=== PATIENT | male | born 1990 | race Caucasian/White ===

== ENCOUNTER 2016-04-28 21:45 | Emergency (ER) | payer BC ==
[~2016-04-28] VITALS: Ht 182.9 cm; Wt 146.9 kg
[~2016-04-28 21:45] MED LIST: LORA-373 PO; ZANT150T2 PO
[2016-04-28 22:27] VITALS: BP 136/90; PULSE 84; RESP 18; TEMP 98.8; O2SAT 97
[2016-04-29] MEDS ORDERED: PENI500T PO (02:35)
--- NOTE | 2016-04-29 02:36 | PD ---
HPI Chief Complaint: Oral / Dental Pain or Problem Time Seen by Provider: 02:33 Travel History International Travel<30 days: No Contact w/Intl Traveler<30days: No Traveled to known affect area: No History of Present Illness HPI 26-year-old male presents to the emergency department for dental infection. Patient has had symptoms for the past 2-3 days with worsening times one day. Patient has not had opportunity to be seen by dentist. Patient denies fever chills nausea vomiting or other concerns. Patient denies being diabetic. Patient takes no immunosuppressive medications. Patient rates pain as 2/10 in intensity. Patient denies any known injury. 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 5) Social History Alcohol Use: No (DENIES) Tobacco Use: Yes (1 PPD) Substance Use: No Allergies-Medications (Allergen,Severity, Reaction): Coded Allergies: Codeine (Unverified Allergy, Severe, Hallucinations, 04/28/16) Uncoded Allergies: RED GATORADE (Allergy, Severe, Nausea/Vomiting, 08/29/13) HOT DOGS (Adverse Reaction, Intermediate, NAUSEA AND VOMITING, 02/20/06) Reported Meds & Prescriptions Reported Meds & Active Scripts Active Penicillin V Potassium 500 Mg Tab 500 Mg PO Q6H 7 Days Reported Zantac (Ranitidine HCl) 150 Mg Tab 150 Mg PO DAILY Lorazepam 0.5 Mg Tab 0.5 Mg PO DAILY Review of Systems Except as stated in HPI: all other systems reviewed are Neg Physical Exam Narrative GENERAL: Well-developed well-nourished male in no acute distress no respiratory distress SKIN: Warm and dry. HEAD: Normocephalic. EYES: No scleral icterus. No injection or drainage. ENT: Mucous membranes moist #2 dentition with gingival hypertrophy and edema extensive dental caries and gingivitis NECK: Supple, trachea midline. No JVD or lymphadenopathy. CARDIOVASCULAR: Regular rate and rhythm without murmurs, gallops, or rubs. RESPIRATORY: Breath sounds equal bilaterally. No accessory muscle use. GASTROINTESTINAL: Abdomen soft, non-tender, nondistended. MUSCULOSKELETAL: No cyanosis, or edema. BACK: Nontender without obvious deformity. No CVA tenderness. Data Data Last Documented VS Vital Signs Date Time Temp Pulse Resp B/P Pulse Ox O2 Delivery O2 Flow Rate FiO2 04/29/16 02:48 81 18 151/81 99 04/28/16 22:27 98.8 Orders Penicillin V Potassium (Veetids) (04/29/16 02:45) [facility] Medical Decision Making Medical Screen Exam Complete: Yes Emergency Medical Condition: Yes Medical Record Reviewed: Yes Differential Diagnosis Dental infection dentalgia dental abscess dental fracture Narrative Course Patient given first dose of antibiotic in the emergency department otherwise stable for outpatient management and close follow-up with dentist; no diagnostics were imaging studies indicated Diagnosis Primary Impression: Dental abscess Referrals: Dentist call for appointment Patient Instructions: Moderate Sedation in Children (ED) Additional Instructions: Complete course of antibiotic Use warm saltwater gargles and swishes comfort purposes Take ibuprofen or acetaminophen per package directions as needed for fever 100.4 F or greater or for pain Follow-up with dentist Return to the emergency department for any concerns or change in condition Med/Other Pt SpecificInfo: Prescription(s) given Scripts Penicillin V Potassium 500 Mg [id number] Mg PO Q6H 7 Days Ref 0 Prov:Tonia Harris MD 04/29/16 Disposition: 01 DISCHARGE HOME Condition: Stable Tonia Harris MD Apr 29, 2016 02:36
[2016-04-29] MEDS ORDERED: PENICILLIN V POTASSIUM 500 MG TAB PO ONE (02:45)
[2016-04-29 02:48] VITALS: BP 151/81
== END 2016-04-29 02:53 | disposition home or self-care (01) ==
LOC: PHED 21:45
DX: K04.7 Periapical abscess without sinus (principal); I10 Essential (primary) hypertension; F17.200 Nicotine dependence, unspecified, uncomplicated; Z86.59 Personal history of other mental and behavioral disorders; Z87.19 Personal history of other diseases of the digestive system; Z87.39 Personal history of other diseases of the musculoskeletal system and connective tissue; Z86.69 Personal history of other diseases of the nervous system and sense organs
CPT/HCPCS: 99282

== ENCOUNTER 2016-07-14 03:09 | Emergency (ER) | payer BC ==
[~2016-07-14] VITALS: Ht 182.9 cm; Wt 145.0 kg
[~2016-07-14 03:09] MED LIST changes: +PENI500T PO
[2016-07-14 03:13] VITALS: BP 148/98; PULSE 83; RESP 18; TEMP 98.4; O2SAT 97
[2016-07-14] MEDS ORDERED: MOTR200T4 PO (03:23)
[2016-07-14 03:25] VITALS: BP 148/98; PULSE 83; RESP 18; TEMP 98.4; O2SAT 97
--- NOTE | 2016-07-14 03:27 | PD ---
HPI Chief Complaint: Foreign Body Time Seen by Provider: 03:24 Travel History International Travel<30 days: No Contact w/Intl Traveler<30days: No History of Present Illness HPI 26yo M with PMH of vertigo and HTN presents to the ED with c/o glass in left foot. States he stepped on glass 30-40 minutes ago. Thinks that something broke about 6 months ago and they must not have clean it all up. Denies any other complaint. 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 5) Social History Alcohol Use: No (DENIES) Tobacco Use: Yes (1 PPD) Substance Use: No Allergies-Medications (Allergen,Severity, Reaction): Coded Allergies: Codeine (Unverified Allergy, Severe, Hallucinations, 07/14/16) Uncoded Allergies: RED GATORADE (Allergy, Severe, Nausea/Vomiting, 08/29/13) HOT DOGS (Adverse Reaction, Intermediate, NAUSEA AND VOMITING, 02/20/06) Reported Meds & Prescriptions Reported Meds & Active Scripts Active Reported Motrin Ib (Ibuprofen) 200 Mg Tab 800 Mg PO Q6H PRN Lorazepam 0.5 Mg Tab 0.5 Mg PO DAILY Review of Systems Except as stated in HPI: all other systems reviewed are Neg Physical Exam Narrative GENERAL: 26yo M not in distress. SKIN: Focused skin assessment warm/dry. HEAD: Atraumatic. Normocephalic. CARDIOVASCULAR: Regular rate and rhythm. No murmur appreciated. RESPIRATORY: No accessory muscle use. Clear to auscultation. Breath sounds equal bilaterally. GASTROINTESTINAL: Abdomen soft, non-tender, nondistended. MUSCULOSKELETAL: Left foot: +Small piece of glass in plantar aspect of calcaneus. DP 2+. Sensation intact. NEUROLOGICAL: Awake and alert. No obvious cranial nerve deficits. Motor grossly within normal limits. Normal speech. PSYCHIATRIC: Appropriate mood and affect; insight and judgment normal. Data Data Last Documented VS Vital Signs Date Time Temp Pulse Resp B/P Pulse Ox O2 Delivery O2 Flow Rate FiO2 07/14/16 03:28 83 18 07/14/16 03:25 98.4 148/98 97 Orders Lidocaine 1% Inj (50 Ml) (Xylocaine 1% I (07/14/16 03:30) Foot, Limited (2vws) (07/14/16 ) Acetaminophen (Tylenol) (07/14/16 04:00) MDM Medical Decision Making Medical Screen Exam Complete: Yes Emergency Medical Condition: Yes Differential Diagnosis Foreign body in foot Narrative Course 26yo M presents with piece of glass in his left foot after stepping on broken glass today. I removed the piece of glass in plantar surface of calcaneus. Pt given acetaminophen 650mg PO. Xray left foot after glass removal showed no foreign body. Return precautions given. Procedures Procedure Narrative Foreign body removal: Left foot was cleaned with betadine and 1% lidocaine use to numb around area of glass protrusion. I was able to remove a small triangular piece of glass with forcep. Wound irrigated with normal saline and I did not visualize any more foreign body. Covered wound with bandaid. Diagnosis Primary Impression: SUPERFICIAL FOREIGN BODY, UNSPECIFIED FOOT, INIT ENCNTR Patient Instructions: General Instructions Departure Forms: Tests/Procedures Additional Instructions: Please follow up with your PMD in 3-7 days. Return to the ED if symptoms worsen. Med/Other Pt SpecificInfo: Prescription(s) given Scripts Acetaminophen (Acetaminophen Extra Strength)500 Mg [id number] Mg PO Q6H PRN (PAIN SCALE 1 TO 4) #20 TAB Ref 0 Prov:Trish Escobedo DO 07/14/16 Disposition: 01 DISCHARGE HOME Condition: Stable Trish Escobedo DO July 14, 2016 03:27
[2016-07-14] MEDS ORDERED: LIDOCAINE HCL 1% 50 ML VIAL INFIL ONE (03:30)
[2016-07-14] MEDS ORDERED: ACETAMINOPHEN 325 MG TAB PO ONE (04:00)
--- NOTE | 2016-07-14 04:18 | RADHPO ---
EXAM DATE/TIME: 07/14/2016 03:58 [facility] COMPARISON: No previous studies available for comparison. INDICATIONS : Left foot, possible foreign body, stepped on glass in heel. MEDICAL HISTORY : None. SURGICAL HISTORY : None. ENCOUNTER: Initial ACUITY: 1 day PAIN SCORE: 3/10 LOCATION: Left foot. FINDINGS: Two view examination of the left foot demonstrates no soft tissue swelling, dislocation, or fracture. The calcaneus is intact. Bony mineralization is normal. CONCLUSION: 1. No foreign body is identified. Zeeshan Pham MD on July 14, 2016 at 4:17 Board Certified Radiologist. This report was verified electronically.
[2016-07-14 04:28] VITALS: BP 152/96; PULSE 75; RESP 18; O2SAT 95
[2016-07-14] MEDS ORDERED: ACET500T36 PO (04:30)
== END 2016-07-14 04:36 | disposition home or self-care (01) ==
LOC: PHED 03:09
DX: S90.852A Superficial foreign body, left foot, initial encounter (principal); W25.XXXA Contact with sharp glass, initial encounter; W45.8XXA Other foreign body or object entering through skin, initial encounter
CPT/HCPCS: 28190; 73620

== ENCOUNTER 2016-11-01 01:52 | Emergency (ER) | payer BC ==
[~2016-11-01] VITALS: Ht 193 cm; Wt 141.7 kg
[~2016-11-01 01:52] MED LIST changes: +ACET500T36 PO; +MOTR200T4 PO; -PENI500T PO; -ZANT150T2 PO
[2016-11-01] MEDS ORDERED: IBUP800T23 PO (02:20)
[2016-11-01 02:27] LABS: AUTOMATED NEUTROPHIL # 6.8 TH/MM3 (1.8-7.7); BASOPHIL # 0.3 TH/MM3 (0-0.2); BASOPHIL % 3.1 % (0.0-2.0); EOSINOPHIL # 0.2 TH/MM3 (0-0.4); EOSINOPHIL % 1.7 % (0.0-4.0); HEMATOCRIT 46.3 % (39.0-51.0); HEMO FLAGS DIFF FINAL; LYMPH % 24.5 % (9.0-44.0); LYMPHOCYTE # 2.6 TH/MM3 (1.0-4.8); MEAN CELL VOLUME 79.4 FL (80.0-100.0); MEAN CORPUSCULAR HEMOGLOBIN 26.7 PG (27.0-34.0); MEAN CORPUSCULAR HGB CONC 33.7 % (32.0-36.0); MONO % 5.1 % (0.0-8.0); NEUT % 65.6 % (16.0-70.0); PLATELET COUNT 259 TH/MM3 (150-450); RED BLOOD COUNT 5.84 MIL/MM3 (4.50-5.90); WHITE BLOOD COUNT 10.4 TH/MM3 (4.0-11.0)
[2016-11-01 02:37] VITALS: BP 163/92; PULSE 92; RESP 18; O2SAT 96
[2016-11-01 02:37] LABS: CHLORIDE 106 MEQ/L (98-107); POTASSIUM 3.9 MEQ/L (3.5-5.1); SODIUM (NA) 140 MEQ/L (136-145)
[2016-11-01 02:40] LABS: ANION GAP 7 MEQ/L (5-15); BICARBONATE 27.1 MEQ/L (21.0-32.0)
[2016-11-01 02:41] LABS: BLOOD UREA NITROGEN 16 MG/DL (7-18)
[2016-11-01 02:44] LABS: ALT (GPT) 56 U/L (12-78); AST (GOT) 25 U/L (15-37); GLOMERULAR FILTRATION RATE 92 ML/MIN (>89)
[2016-11-01 02:45] LABS: TOTAL BILIRUBIN ADULT 0.1 MG/DL (0.2-1.0)
[2016-11-01 02:46] LABS: ALKALINE PHOSPHATASE 88 U/L (45-117)
--- NOTE | 2016-11-01 02:51 | RADRPT ---
EXAM DATE/TIME: 11/01/2016 02:36 [facility] COMPARISON: CHEST PA & LAT, February 03, 2014, 17:14. INDICATIONS : Chest pain. MEDICAL HISTORY : None. SURGICAL HISTORY : None. ENCOUNTER: Initial ACUITY: 1 day PAIN SCORE: 7/10 LOCATION: Bilateral chest FINDINGS: PA and lateral views of the chest demonstrate the lungs to be symmetrically aerated without evidence of mass, infiltrate or effusion. The cardiomediastinal contours are unremarkable. Osseous structure s are intact. CONCLUSION: No acute disease. Te Day MD on November 01, 2016 at 2:49 Board Certified Radiologist. This report was verified electronically.
[2016-11-01 03:40] VITALS: BP 141/76; PULSE 87; RESP 18; TEMP 98.7; O2SAT 96
[2016-11-01] MEDS ORDERED: LORA-373 PO (03:48)
[2016-11-01] MEDS ORDERED: PROM25TA10 PO (03:48)
--- NOTE | 2016-11-01 03:48 | PD ---
HPI Chief Complaint: Chest Pain Time Seen by Provider: 02:08 Travel History International Travel<30 days: No Contact w/Intl Traveler<30days: No Traveled to known affect area: No History of Present Illness HPI The patient is a 26-year-old male with a 10 year history of intermittent vertigo who states at 1 AM his left ear "popped". After the ear popped he felt pressure in the left ear as well as nausea and vomiting. He also experienced vertigo. He denies any drainage in the left ear. He does have a history of perforation of that tympanic membrane years ago. He complained of some brief chest pain, this is gone now. Meclizine has not worked for his vertigo but lorazepam has worked and so has Valium. Valium makes him too sleepy and he prefers lorazepam 0.5 mg. PFSH Past Medical History Anxiety: Yes Cardiovascular Problems: Yes Diminished Hearing: No GERD: Yes Headaches: Yes Hypertension: Yes Medical other: Yes (vertigo) Musculoskeletal: Yes (5TH METACARPAL RIGHT HAND FX: AGE 14) Immunizations Current: Yes Migraines: Yes Seizures: Yes (WITH BRAIN TUMOR: RESOLVED) Tetanus Vaccination: < 5 Years Influenza Vaccination: No Past Surgical History Neurologic Surgery: Yes (BRAIN TUMOR cerebellum: AGE 5) Social History Alcohol Use: No (DENIES) Tobacco Use: Yes (1 PPD) Substance Use: No Allergies-Medications (Allergen,Severity, Reaction): Coded Allergies: codeine (Verified Allergy, Severe, Hallucinations, 11/01/16) Uncoded Allergies: RED GATORADE (Allergy, Severe, Nausea/Vomiting, 08/29/13) HOT DOGS (Adverse Reaction, Intermediate, NAUSEA AND VOMITING, 02/20/06) Reported Meds & Prescriptions Reported Meds & Active Scripts Active Reported Ibuprofen 800 Mg Tab 800 Mg PO Q8H PRN Lorazepam 0.5 Mg Tab 0.5 Mg PO HS Review of Systems Except as stated in HPI: all other systems reviewed are Neg Physical Exam Narrative GENERAL: The patient is alert, oriented 3 in no apparent distress at this time. His vital signs are normal. SKIN: Focused skin assessment warm/dry. HEAD: Atraumatic. Normocephalic. EYES: Pupils equal and round. No scleral icterus. No injection or drainage. ENT: No nasal bleeding or discharge. Mucous membranes pink and moist. The right tympanic membrane and canal are normal. The left tympanic membrane shows a good reflex but shows an off white dullness behind the drum. The right tympanic membrane does not have this appearance. Both canals are normal. NECK: Trachea midline. No JVD. CARDIOVASCULAR: Regular rate and rhythm. No murmur appreciated. RESPIRATORY: No accessory muscle use. Clear to auscultation. Breath sounds equal bilaterally. GASTROINTESTINAL: Abdomen soft, non-tender, nondistended. Hepatic and splenic margins not palpable. MUSCULOSKELETAL: No obvious deformities. No clubbing. No cyanosis. No edema. NEUROLOGICAL: Awake and alert. No obvious cranial nerve deficits. Motor grossly within normal limits. Normal speech. PSYCHIATRIC: Appropriate mood and affect; insight and judgment normal. Data Data Last Documented VS Vital Signs Date Time Temp Pulse Resp B/P Pulse Ox O2 Delivery O2 Flow Rate FiO2 11/01/16 02:07 92 Orders Complete Blood Count With Diff (11/01/16 02:17) Comprehensive Metabolic Panel (11/01/16 02:17) Troponin I (11/01/16 02:17) Chest, Pa & Lat (11/01/16 ) Ecg Monitoring (11/01/16 02:17) Labs Laboratory Tests Test 11/01/16 02:20 White Blood Count 10.4 TH/MM3 Red Blood Count 5.84 MIL/MM3 Hemoglobin 15.6 GM/DL Hematocrit 46.3 % Mean Corpuscular Volume 79.4 FL Mean Corpuscular Hemoglobin 26.7 PG Mean Corpuscular Hemoglobin 33.7 % Concent Red Cell Distribution Width 13.0 % Platelet Count 259 TH/MM3 Mean Platelet Volume 8.3 FL Neutrophils (%) (Auto) 65.6 % Lymphocytes (%) (Auto) 24.5 % Monocytes (%) (Auto) 5.1 % Eosinophils (%) (Auto) 1.7 % Basophils (%) (Auto) 3.1 % Neutrophils # (Auto) 6.8 TH/MM3 Lymphocytes # (Auto) 2.6 TH/MM3 Monocytes # (Auto) 0.5 TH/MM3 Eosinophils # (Auto) 0.2 TH/MM3 Basophils # (Auto) 0.3 TH/MM3 CBC Comment DIFF FINAL Differential Comment Sodium Level 140 MEQ/L Potassium Level 3.9 MEQ/L Chloride Level 106 MEQ/L Carbon Dioxide Level 27.1 MEQ/L Anion Gap 7 MEQ/L Blood Urea Nitrogen 16 MG/DL Creatinine 1.00 MG/DL Estimat Glomerular Filtration 92 ML/MIN Rate Random Glucose 138 MG/DL Calcium Level 8.9 MG/DL Total Bilirubin 0.1 MG/DL Aspartate Amino Transf 25 U/L (AST/SGOT) Alanine Aminotransferase 56 U/L (ALT/SGPT) Alkaline Phosphatase 88 U/L Troponin I LESS THAN 0.02 NG/ML Total Protein 7.4 GM/DL Albumin 3.5 GM/DL MDM Medical Decision Making Medical Screen Exam Complete: Yes Emergency Medical Condition: Yes Medical Record Reviewed: Yes Interpretation(s) The CBC is normal. The complete metabolic profile shows a glucose of 138 but is otherwise normal. The troponin I is normal. The EKG shows sinus rhythm with a rate of [address] elevation or depression. Differential Diagnosis Chronic vertigo, Cholesteatoma, tympanic membrane perforation, round window perforation, benign positional vertigo, viral labyrinthitis Narrative Course The patient has chronic vertigo. He may have a round window perforation, I do not see any tympanic membrane perforation. He has a dullness behind the left ear which is not present on the right ear. He has had vertigo for a long time but has never seen an cardiology fellow. He needs to see an cardiology fellow. For now, I will write him lorazepam, 0.5 mg. I will also write him Phenergan. Diagnosis Primary Impression: Chronic vertigo Additional Impression: Atypical chest pain Additional Instructions: As we discussed, you need to see an cardiology fellow. There is only a minimal difference between the 2 years but it does appear that the left ear has some dullness behind the drum. Do not drink alcohol or drive on the Phenergan or lorazepam. Med/Other Pt SpecificInfo: Prescription(s) given Scripts Promethazine (Phenergan)25 Mg Exinpc28 Mg PO Q6H PRN (NAUSEA OR VOMITING) #30 TAB Ref 0 Prov:Nicholas Lucio MD 11/01/16 Lorazepam 0.5 Mg Tab0.5 Mg PO Q6H PRN (vertigo) #30 TAB Ref 0 Prov:Nicholas Lucio MD 11/01/16 Disposition: 01 DISCHARGE HOME Condition: Stable Nicholas Lucio MD Nov 01, 2016 03:48
--- NOTE | 2016-11-01 16:08 | EKG ---
Date Performed: 11/01/2016 Time Performed: 02:07:24 PTAGE: 26 years EKG: Sinus rhythm INDETERMINATE AXIS INCOMPLETE RIGHT BUNDLE BRANCH BLOCK BORDERLINE ECG PREVIOUS TRACING 07/30/2015 23.01.16 Since previous tracing, no significant change noted DOCTOR: Mateo Liu Interpretating Date/Time 11/01/2016 16:07:21
== END 2016-11-01 04:01 | disposition home or self-care (01) ==
LOC: PHED 01:52
DX: R42 Dizziness and giddiness (principal); R07.89 Other chest pain; R11.2 Nausea with vomiting, unspecified; F17.200 Nicotine dependence, unspecified, uncomplicated
CPT/HCPCS: 71020; 80053; 84484; 85025; 93005; 99285

== ENCOUNTER 2016-12-31 00:20 | Emergency (ER) | payer BC ==
[~2016-12-31] VITALS: Ht 182.9 cm; Wt 139.2 kg
[~2016-12-31 00:20] MED LIST changes: -ACET500T36 PO; +IBUP800T23 PO; -MOTR200T4 PO; +PROM25TA10 PO
[2016-12-31 00:26] VITALS: BP 177/92; PULSE 77; RESP 16; TEMP 97.6; O2SAT 98
[2016-12-31 00:35] VITALS: BP 177/92; PULSE 77; RESP 16; TEMP 97.6
--- NOTE | 2016-12-31 00:45 | PD ---
HPI Chief Complaint: injury Time Seen by Provider: 00:39 Travel History International Travel<30 days: No Contact w/Intl Traveler<30days: No Traveled to known affect area: No History of Present Illness HPI 26-year-old male presents to the emergency department for complaint of left hand injury. Patient states Thursday evening he contused the dorsal aspect of his left hand against a lathe. Patient denies other injury. Patient has had minimal swelling or bruising. Patient denies any wrist pain or finger pain. Patient is able to eyeglass lens generator and has intact thumb apposition. Patient has not noticed any deformity. No prior injury to the left hand. Patient rates his pain at rest one to 2/10 in intensity and with eyeglass lens generator strength 5-6/10 in intensity. Patient has taken no medications including no acetaminophen or ibuprofen. Patient has not applied ice. Due to persistent discomfort decided to, probably come to the emergency room for evaluation. Patient is right- handed. PFSH Past Medical History Narrative Medical Anxiety GERD hypertension childhood seizures post tumor excision right hand fracture; craniotomy with cerebellar tumor excision H3; tobacco use; nursing notes reviewed Anxiety: Yes Cardiovascular Problems: Yes Diminished Hearing: No GERD: Yes Headaches: Yes Hypertension: Yes Musculoskeletal: Yes (5TH METACARPAL RIGHT HAND FX: AGE 14) Immunizations Current: Yes Migraines: Yes Seizures: Yes (WITH BRAIN TUMOR: RESOLVED) Past Surgical History Neurologic Surgery: Yes (BRAIN TUMOR cerebellum: AGE 5) Social History Alcohol Use: No (DENIES) Tobacco Use: Yes (1 PPD) Substance Use: No Allergies-Medications (Allergen,Severity, Reaction): Coded Allergies: codeine (Verified Allergy, Severe, Hallucinations, 12/31/16) Uncoded Allergies: RED GATORADE (Allergy, Severe, Nausea/Vomiting, 08/29/13) HOT DOGS (Adverse Reaction, Intermediate, NAUSEA AND VOMITING, 02/20/06) Reported Meds & Prescriptions Reported Meds & Active Scripts Active Phenergan (Promethazine HCl) 25 Mg Tablet 25 Mg PO Q6H PRN Lorazepam 0.5 Mg Tab 0.5 Mg PO Q6H PRN Reported Ibuprofen 800 Mg Tab 800 Mg PO Q8H PRN Lorazepam 0.5 Mg Tab 0.5 Mg PO HS Review of Systems Except as stated in HPI: all other systems reviewed are Neg General / Constitutional: No: Fever, Chills HENT: No: Congestion Cardiovascular: No: Chest Pain or Discomfort Respiratory: No: Shortness of Breath Gastrointestinal: No: Vomiting, Abdominal Pain Genitourinary: No: Flank Pain Musculoskeletal: Positive: Pain, No: Myalgias, Arthralgias, Limited ROM Skin: No Rash Neurologic: No: Weakness (left hand), Paresthesia Psychiatric: No: Anxiety Hematologic/Lymphatic: No: Lymph Node Enlargement Physical Exam Narrative GENERAL: Well-developed well-nourished male in no acute distress no respiratory distress SKIN: Warm and dry. HEAD: Normocephalic. EYES: No scleral icterus. No injection or drainage. NECK: Supple, trachea midline. No JVD or lymphadenopathy. CARDIOVASCULAR: Regular rate and rhythm without murmurs, gallops, or rubs. RESPIRATORY: Breath sounds equal bilaterally. No accessory muscle use. GASTROINTESTINAL: Abdomen soft, non-tender, nondistended. MUSCULOSKELETAL: No cyanosis, or edema. Attention left hand: No redness no pallor no edema intact flexion extension of each digit intact thumb apposition capillary refill brisk and less than 2 seconds per digit mild tenderness to palpation over the dorsum of the left hand at the third and fourth metacarpal carpal joints without soft tissue swelling or deformity. Radial and ulnar pulses 2+ to palpation. Data Data Last Documented VS Vital Signs Date Time Temp Pulse Resp B/P (MAP) Pulse Ox O2 Delivery O2 Flow Rate FiO2 12/31/16 00:35 97.6 77 16 177/92 (120) 12/31/16 00:35 98 Room Air Orders Orders Hand, Complete ([id number]) (12/31/16 ) Ed Discharge Order (12/31/16 01:24) MDM Medical Decision Making Medical Screen Exam Complete: Yes Emergency Medical Condition: Yes Medical Record Reviewed: Yes Interpretation(s) left hand XR: No fracture subluxation or dislocation seen. No acute bony injury. Differential Diagnosis Contusion, fracture, subluxation, extensor tendinitis Narrative Course Imaging study of the left hand ordered Patient informed of imaging results in stable for outpatient management. Diagnosis Primary Impression: Contusion of hand, left Qualified Codes: S60.222A - Contusion of left hand, initial encounter Referrals: Primary Care Physician as needed Patient Instructions: General Instructions Additional Instructions: Apply ice intermittently first 12-24 hours then moist heat as needed for comfort Take ibuprofen/Advil/Motrin 800 mg as often as every 8 hours as needed for pain associated inflammation May take acetaminophen/Tylenol every 4-6 hours as needed for minor pain or for fever 100.4F or greater Increase fluid hydration May wear an Ronen wrap intermittently for comfort purposes do not wear this while sleeping Follow-up with primary care provider as needed Return to the emergency department for any concerns or change in condition Disposition: 01 DISCHARGE HOME Condition: Stable Tonia Harris MD Dec 31, 2016 00:45
--- NOTE | 2016-12-31 01:21 | RADRPT ---
EXAM DATE/TIME: 12/31/2016 00:56 [facility] COMPARISON: No previous studies available for comparison. INDICATIONS : Left hand pain after hitting hand against heavy object. MEDICAL HISTORY : None. SURGICAL HISTORY : None. ENCOUNTER: Initial ACUITY: 3 days PAIN SCORE: 6/10 LOCATION: Left hand. FINDINGS: Three view examination of the left hand demonstrates no soft tissue swelling, dislocation, or fractur e. The carpal bones appear intact. The interphalangeal and metacarpophalangeal joints are intact. Bony mineralization is normal. CONCLUSION: 1. There is no evidence of acute fracture. Zeeshan Pham MD on December 31, 2016 at 1:20 Board Certified Radiologist. This report was verified electronically.
[2016-12-31 01:40] VITALS: BP 152/74
== END 2016-12-31 01:44 | disposition home or self-care (01) ==
LOC: PHED 00:20
DX: S60.222A Contusion of left hand, initial encounter (principal); W22.8XXA Striking against or struck by other objects, initial encounter
CPT/HCPCS: 73130; 99283

== ENCOUNTER 2017-02-01 19:02 | Emergency (ER) | payer BC ==
[~2017-02-01] VITALS: Ht 182.9 cm; Wt 138.1 kg
[~2017-02-01 19:02] MED LIST changes: +IBUP1TAB7 PO; -IBUP800T23 PO; -LORA-373 PO; +LORA0.5T PO
[2017-02-01 19:08] VITALS: BP 130/66; PULSE 79; RESP 20; TEMP 98.4; O2SAT 96
[2017-02-01] MEDS ORDERED: PRED20 PO (19:38)
--- NOTE | 2017-02-01 19:38 | PD ---
HPI Chief Complaint: ENT Complaint Time Seen by Provider: 19:15 Travel History International Travel<30 days: No Contact w/Intl Traveler<30days: No Traveled to known affect area: No History of Present Illness HPI 26 old male here for evaluation of left ear fullness and a popping sensation times one day. He denies ear pain, ear drainage, fever, chills. He denies trauma or injury to the ear. Symptoms severity is mild. No alleviating factors. 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14) Immunizations Current: Yes Migraines: Yes Seizures: Yes (WITH BRAIN TUMOR: RESOLVED) Past Surgical History Neurologic Surgery: Yes (BRAIN TUMOR cerebellum: AGE 5) Social History Alcohol Use: No (DENIES) Tobacco Use: Yes (1 PPD) Substance Use: No Allergies-Medications (Allergen,Severity, Reaction): Coded Allergies: codeine (Verified Allergy, Severe, Hallucinations, 02/01/17) Uncoded Allergies: RED GATORADE (Allergy, Severe, Nausea/Vomiting, 08/29/13) HOT DOGS (Adverse Reaction, Intermediate, NAUSEA AND VOMITING, 02/20/06) Reported Meds & Prescriptions Reported Meds & Active Scripts Active Reported Ibuprofen 800 Mg Tab 800 Mg PO Q8H PRN Lorazepam 0.5 Mg Tab 0.5 Mg PO HS Review of Systems Except as stated in HPI: all other systems reviewed are Neg Physical Exam Narrative HEAD: Atraumatic. Normocephalic. EYES: no discharge or injection. No scleral icterus. EARS: Left TM bulging, no erythema, fluid bubbles present. NOSE: Nasal turbinates appear normal without nasal blood, purulent drainage or septal hematoma. THROAT: Mucosa pink and moist. No erythema or exudates. No uvular edema. No uvular, palatal, or tonsillar deviation. Airway patent. Data Data Last Documented VS Vital Signs Date Time Temp Pulse Resp B/P (MAP) Pulse Ox O2 Delivery O2 Flow Rate FiO2 02/01/17 19:22 (87) 02/01/17 19:08 98.4 79 20 96 MDM Medical Decision Making Medical Screen Exam Complete: Yes Emergency Medical Condition: Yes Differential Diagnosis Otitis media, serous otitis, eustachian tube dysfunction Narrative Course 26-year-old male here with left ear fullness and a tapping sound times one day. On exam he has fluid bubbles behind the left TM. No sign of infection. To take [id number] Claritin or Zyrtec. He will be given a short dose of steroids Diagnosis Primary Impression: Serous otitis media Qualified Codes: H65.92 - Unspecified nonsuppurative otitis media, left ear Additional Instructions: Take [id number] Claritin or Zyrtec daily. Follow-up with her primary doctor. Scripts Prednisone (Prednisone) 20 Mg Tab 40 MG PO DAILY, #10 TAB 0 Refills Take 40 mg (2 tablets) daily for 5 days Prov: Nina Corea 02/01/17 Disposition: 01 DISCHARGE HOME Condition: Stable Nina Corea Feb 01, 2017 19:38
== END 2017-02-01 20:06 | disposition home or self-care (01) ==
LOC: PHEFT 19:02
DX: H65.92 Unspecified nonsuppurative otitis media, left ear (principal); F17.200 Nicotine dependence, unspecified, uncomplicated
CPT/HCPCS: 99283

== ENCOUNTER 2017-08-01 21:41 | Emergency (ER) | payer BC ==
[~2017-08-01] VITALS: Ht 182.9 cm; Wt 140.1 kg
[~2017-08-01 21:41] MED LIST changes: +PRED20 PO; -PROM25TA10 PO
[2017-08-01 21:58] VITALS: BP 143/91; PULSE 82; RESP 18; TEMP 98.8; O2SAT 97
[2017-08-01] MEDS ORDERED: SODIUM CHLORIDE 0.9% FLUSH 10 ML FLUSH IV FLUSH PRN (22:15)
[2017-08-01] MEDS ORDERED: KETOROLAC TROMETHAMINE 30 MG/ML (IVP) VIAL IV PUSH ONE (22:15)
[2017-08-01] MEDS ORDERED: SODIUM CHLOR 0.9% 1000 ML INJ 1,000 ML IV SCH (22:15)
--- NOTE | 2017-08-01 22:20 | PD ---
HPI Chief Complaint: abdominal pain Time Seen by Provider: 22:14 Travel History International Travel<30 days: No Contact w/Intl Traveler<30days: No Traveled to known affect area: No History of Present Illness HPI 27-year-old male presents to the emergency department by private transportation for evaluation of one half days of lower abdominal pain left lower quadrant greater than right lower quadrant and midline. No fever no chills no nausea no vomiting no diarrhea no constipation no dysuria frequency urgency flank pain hematuria penile discharge scrotal edema or testicular pain. Patient denies any injury. Patient states bending down trying to lift objects increases pain. Patient has not noticed a mass. Patient has had similar pain into the upper abdomen in the remote past. Patient takes lorazepam and ibuprofen and denies any other medication use. Admits to tobacco use occasional alcohol use and denies substance use. Patient is otherwise unable to identify exacerbating or alleviating factors did not take his medications today. Patient denies any anorexia. Patient rates intermittent pain 4-5/10 intensity. 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 14) Immunizations Current: Yes Migraines: Yes Seizures: Yes (WITH BRAIN TUMOR: RESOLVED) Past Surgical History Neurologic Surgery: Yes (BRAIN TUMOR cerebellum: AGE 5) Social History Alcohol Use: No (DENIES) Tobacco Use: Yes (1 PPD) Substance Use: No Allergies-Medications (Allergen,Severity, Reaction): Coded Allergies: codeine (Verified Allergy, Severe, Hallucinations, 08/01/17) Uncoded Allergies: RED GATORADE (Allergy, Severe, Nausea/Vomiting, 08/29/13) HOT DOGS (Adverse Reaction, Intermediate, NAUSEA AND VOMITING, 02/20/06) Reported Meds & Prescriptions Reported Meds & Active Scripts Active Reported Ibuprofen 800 Mg Tab 800 Mg PO Q8H PRN Lorazepam 0.5 Mg Tab 0.5 Mg PO HS Review of Systems Except as stated in HPI: all other systems reviewed are Neg General / Constitutional: No: Fever, Chills HENT: No: Congestion Cardiovascular: No: Chest Pain or Discomfort Respiratory: No: Shortness of Breath Gastrointestinal: No: Nausea, Abdominal Pain, Hematemesis, Hematochezia, Constipation, Loss of Appetite Genitourinary: No: Dysuria, Flank Pain, Discharge Musculoskeletal: No: Myalgias, Arthralgias Skin: No Rash Neurologic: No: Weakness Psychiatric: No: Anxiety Hematologic/Lymphatic: No: Lymph Node Enlargement Physical Exam Narrative GENERAL: Well-developed well-nourished male no acute distress or respiratory SKIN: Warm and dry. HEAD: Normocephalic. EYES: No scleral icterus. No injection or drainage. NECK: Supple, trachea midline. No JVD or lymphadenopathy. CARDIOVASCULAR: Regular rate and rhythm without murmurs, gallops, or rubs. RESPIRATORY: Breath sounds equal bilaterally. No accessory muscle use. GASTROINTESTINAL: Abdomen soft, mild left lower quadrant and midline tenderness to palpation without guarding or rebound, nondistended. MUSCULOSKELETAL: No cyanosis, or edema. BACK: Nontender without obvious deformity. No CVA tenderness. Data Data Last Documented VS Vital Signs Date Time Temp Pulse Resp B/P (MAP) Pulse Ox O2 Delivery O2 Flow Rate FiO2 08/01/17 23:58 65 16 150/81 (104) 97 Room Air 08/01/17 21:58 98.8 Orders Orders Complete Blood Count With Diff (08/01/17 22:14) Comprehensive Metabolic Panel (08/01/17 22:14) Lipase (08/01/17 22:14) Urinalysis - C+S If Indicated (08/01/17 22:14) Ct Abd/Pel W Iv Contrast(Rout) (08/01/17 22:14) Iv Access Insert/Monitor (08/01/17 22:14) Ecg Monitoring (08/01/17 22:14) Oximetry (08/01/17 22:14) Sodium Chloride 0.9% Flush (Ns Flush) (08/01/17 22:15) Ketorolac Inj (Toradol Inj) (08/01/17 22:15) Sodium Chlor 0.9% 1000 Ml Inj (Ns 1000 M (08/01/17 22:15) Iohexol 350 Inj (Omnipaque 350 Inj) (08/01/17 23:47) Labs Laboratory Tests Test 08/01/17 22:24 08/01/17 22:30 Urine Color YELLOW Urine Turbidity CLEAR Urine pH 7.0 Urine Specific [place] 1.010 Urine Protein NEG mg/dL Urine Glucose (UA) NEG mg/dL Urine Ketones NEG mg/dL Urine Occult Blood NEG Urine Nitrite NEG Urine Bilirubin NEG Urine Urobilinogen 0.2 MG/DL Urine Leukocyte Esterase NEG Urine Squamous Epithelial Cells 0-5 /hpf Microscopic Urinalysis Comment CULT NOT INDICATED White Blood Count 10.2 TH/MM3 Red Blood Count 5.44 MIL/MM3 Hemoglobin 15.1 GM/DL Hematocrit 43.9 % Mean Corpuscular Volume 80.8 FL Mean Corpuscular Hemoglobin 27.8 PG Mean Corpuscular Hemoglobin Concent 34.3 % Red Cell Distribution Width 13.3 % Platelet Count 245 TH/MM3 Mean Platelet Volume 8.7 FL Neutrophils (%) (Auto) 67.7 % Lymphocytes (%) (Auto) 24.5 % Monocytes (%) (Auto) 5.3 % Eosinophils (%) (Auto) 1.5 % Basophils (%) (Auto) 1.0 % Neutrophils # (Auto) 6.9 TH/MM3 Lymphocytes # (Auto) 2.5 TH/MM3 Monocytes # (Auto) 0.5 TH/MM3 Eosinophils # (Auto) 0.2 TH/MM3 Basophils # (Auto) 0.1 TH/MM3 CBC Comment AUTO DIFF Differential Comment AUTO DIFF CONFIRMED Blood Urea Nitrogen 15 MG/DL Creatinine 1.00 MG/DL Random Glucose 94 MG/DL Total Protein 7.4 GM/DL Albumin 3.5 GM/DL Calcium Level 8.7 MG/DL Alkaline Phosphatase 77 U/L Aspartate Amino Transf (AST/SGOT) 16 U/L Alanine Aminotransferase (ALT/SGPT) 38 U/L Total Bilirubin 0.2 MG/DL Sodium Level 140 MEQ/L Potassium Level 4.1 MEQ/L Chloride Level 108 MEQ/L Carbon Dioxide Level 26.6 MEQ/L Anion Gap 5 MEQ/L Estimat Glomerular Filtration Rate 91 ML/MIN Lipase 139 U/L [facility] Medical Decision Making Medical Screen Exam Complete: Yes Emergency Medical Condition: Yes Medical Record Reviewed: Yes Interpretation(s) CBC & BMP Diagram 08/01/17 22:30 Total Protein 7.4, Albumin 3.5, Calcium Level 8.7, Alkaline Phosphatase 77, Aspartate Amino Transf (AST/SGOT) 16, Alanine Aminotransferase (ALT/SGPT) 38, Total Bilirubin 0.2 Vital Signs Date Time Temp Pulse Resp B/P (MAP) Pulse Ox O2 Delivery O2 Flow Rate FiO2 08/01/17 23:58 65 16 150/81 (104) 97 Room Air 08/01/17 23:58 16 08/01/17 22:55 62 16 150/78 (102) 97 Room Air 08/01/17 22:44 16 98 Room Air 08/01/17 21:58 98.8 82 18 143/91 (108) 97 UA: wnl Differential Diagnosis Abdominal pain atypical colitis diverticulitis gastroenteritis renal colic; also consider testicular torsion Narrative Course IV access obtained specimens collections of resulting patient administered maintenance IV fluids and Toradol 30 mg IV Diagnosis Primary Impression: Abdominal pain Qualified Codes: R10.32 - Left lower quadrant pain Referrals: Primary Care Physician 2 days Patient Instructions: General Instructions Additional Instructions: Follow clear liquid diet for next 12-24 hours advance as tolerated to bland/ brat diet and regular diet avoiding fried and fatty foods Follow-up with your primary care provider call office on Thursday Return to the emergency department for any concerns or change in condition Take as tolerated ibuprofen 800 mg as often as every 8 hours May take Zofran as prescribed as needed for nausea and/or vomiting Monitor temperature every 4 hours with thermometry May take acetaminophen/ Tylenol every 4 hours as needed for fever 100.4F or greater for pain or for fever 100.4F or greater Med/Other Pt SpecificInfo: Prescription(s) given Scripts Ondansetron Odt (Zofran Odt) 4 Mg Tab 4 MG SL Q6HR Y for Nausea/Vomiting, #10 TAB 0 Refills Prov: Tonia Harris MD 08/02/17 Disposition: 01 DISCHARGE HOME Condition: Stable Tonia Harris MD August 01, 2017 22:20
[2017-08-01 22:40] LABS: BILIRUBIN, URINE NEG (NEG); BLOOD, URINE NEG (NEG); GLUCOSE,URINE NEG (NEG); KETONE, URINE NEG (NEG); NITRITE,URINE NEG (NEG); URINE COLOR YELLOW (YELLW/STRAW); URINE LEUKOCYTE ESTERASE NEG (NEG)
[2017-08-01 22:44] VITALS: RESP 16; O2SAT 98
[2017-08-01 22:47] LABS: AUTOMATED NEUTROPHIL # 6.9 TH/MM3 (1.8-7.7); BASOPHIL # 0.1 TH/MM3 (0-0.2); CHLORIDE 108 MEQ/L (98-107); EOSINOPHIL # 0.2 TH/MM3 (0-0.4); EOSINOPHIL % 1.5 % (0.0-4.0); HEMATOCRIT 43.9 % (39.0-51.0); HEMOGLOBIN 15.1 GM/DL (13.0-17.0); LYMPH % 24.5 % (9.0-44.0); LYMPHOCYTE # 2.5 TH/MM3 (1.0-4.8); MEAN CELL VOLUME 80.8 FL (80.0-100.0); MEAN CORPUSCULAR HEMOGLOBIN 27.8 PG (27.0-34.0); MEAN CORPUSCULAR HGB CONC 34.3 % (32.0-36.0); MEAN PLATELET VOLUME 8.7 FL (7.0-11.0); MONO % 5.3 % (0.0-8.0); MONOCYTE # 0.5 TH/MM3 (0-0.9); NEUT % 67.7 % (16.0-70.0); PLATELET COUNT 245 TH/MM3 (150-450); RED BLOOD COUNT 5.44 MIL/MM3 (4.50-5.90); RED CELL DISTRIBUTION WIDTH 13.3 % (11.6-17.2); SODIUM (NA) 140 MEQ/L (136-145); WHITE BLOOD COUNT 10.2 TH/MM3 (4.0-11.0)
[2017-08-01 22:50] LABS: ALBUMIN 3.5 GM/DL (3.4-5.0); BICARBONATE 26.6 MEQ/L (21.0-32.0); CALCIUM 8.7 MG/DL (8.5-10.1); GLUCOSE,RANDOM 94 MG/DL (74-106)
[2017-08-01 22:51] LABS: BLOOD UREA NITROGEN 15 MG/DL (7-18)
[2017-08-01 22:53] LABS: ALT (GPT) 38 U/L (12-78); AST (GOT) 16 U/L (15-37)
[2017-08-01 22:54] LABS: GLOMERULAR FILTRATION RATE 91 ML/MIN (>89)
[2017-08-01 22:55] VITALS: BP 150/78; PULSE 62; RESP 16; O2SAT 97
[2017-08-01 22:55] LABS: TOTAL BILIRUBIN ADULT 0.2 MG/DL (0.2-1.0); TOTAL PROTEIN 7.4 GM/DL (6.4-8.2)
[2017-08-01 22:56] LABS: ALKALINE PHOSPHATASE 77 U/L (45-117)
[2017-08-01 23:11] LABS: SQUAMOUS EPITHELIAL CELL URINE 0-5 /hpf (0-5)
[2017-08-01] MEDS ORDERED: IOHEXOL 350 MG/ML 10 ML VIAL (for RAD DIAG) IVCONTRAST ONE (23:47)
[2017-08-01 23:58] VITALS: BP 150/81; PULSE 65; RESP 16; O2SAT 97
--- NOTE | 2017-08-02 00:03 | RADRPT ---
EXAM DATE/TIME: 08/01/2017 23:36 [facility] COMPARISON: No previous studies available for comparison. INDICATIONS : Lower abdominal pain when bending over. IV CONTRAST: 90 cc Omnipaque 350 (iohexol) IV ORAL CONTRAST: No oral contrast ingested. RADIATION DOSE: 22.38 CTDIvol (mGy) MEDICAL HISTORY : Gastroesophageal reflux disease. Seizures. Hypertension.Brain tumor. SURGICAL HISTORY : None. ENCOUNTER: Initial ACUITY: 2 days PAIN SCALE: 7/10 LOCATION: Left lower quadrant TECHNIQUE: Volumetric scanning of the abdomen and pelvis was performed. Using automated exposure control and ad justment of the mA and/or kV according to patient size, radiation dose was kept as low as reasonably achievable to obtain optimal diagnostic quality images. DICOM format image data is available electro nically for review and comparison. FINDINGS: LOWER LUNGS: The visualized lower lungs are clear. LIVER: Mild fatty infiltration. Subtle low-attenuation lesion medial segment left lobe measuring about 1.8 c m, likely benign and may represent a small cyst or hemangioma. SPLEEN: Normal size without lesion. PANCREAS: Within normal limits. KIDNEYS: Normal in size and shape. There is no mass, stone or hydronephrosis. ADRENAL GLANDS: Within normal limits. VASCULAR: There is no aortic aneurysm. BOWEL/MESENTERY: The stomach, small bowel, and colon demonstrate no acute abnormality. There is no free intraperitone al air or fluid. ABDOMINAL WALL: Within normal limits. RETROPERITONEUM: There is no lymphadenopathy. BLADDER: No wall thickening or mass. REPRODUCTIVE: Within normal limits. INGUINAL: There is no lymphadenopathy or hernia. MUSCULOSKELETAL: Within normal limits for patient age. CONCLUSION: 1. No acute findings. Mild fatty liver. Questionable small cyst or hemangioma in the liver anteriorly . Te Day MD on August 01, 2017 at 23:56 Board Certified Radiologist. This report was verified electronically.
[2017-08-02] MEDS ORDERED: ZOFR4TAB3 SL (00:46)
[2017-08-02 00:59] VITALS: BP 152/78
== END 2017-08-02 01:00 | disposition home or self-care (01) ==
LOC: PHED 21:41
DX: R10.32 Left lower quadrant pain (principal); K21.9 Gastro-esophageal reflux disease without esophagitis; I10 Essential (primary) hypertension; F41.9 Anxiety disorder, unspecified; R51 Headache; F17.200 Nicotine dependence, unspecified, uncomplicated
CPT/HCPCS: 74177; 80053; 81001; 83690; 85025; 96361; 96374; 99284; J1885; J7030; Q9967

== ENCOUNTER 2017-08-14 15:46 | Emergency (ER) | payer BC ==
[~2017-08-14] VITALS: Ht 182.9 cm; Wt 142.5 kg
[~2017-08-14 15:46] MED LIST changes: -PRED20 PO; +ZOFR4TAB3 SL
[2017-08-14 15:50] VITALS: BP 160/76; PULSE 78; RESP 18; TEMP 97.8; O2SAT 97
[2017-08-14] MEDS ORDERED: LORA0.5T PO (15:58)
[2017-08-14] MEDS ORDERED: IBUP1TAB7 PO (15:58)
[2017-08-14] MEDS ORDERED: CEPH-460 PO (16:04)
--- NOTE | 2017-08-14 16:04 | PD ---
HPI Chief Complaint: Skin Problem Time Seen by Provider: 15:54 Travel History International Travel<30 days: No Contact w/Intl Traveler<30days: No Traveled to known affect area: No History of Present Illness HPI 27-year-old male presents emergency department for evaluation of 3 to the left middle finger that occurred just prior to arrival. He says he is unsure of there is a piece of metal in the wound and decided to come to the ED for evaluation as a portion of his finger skin is missing. He says the site is painful to the touch, burning sensation, no radiation of pain. Says he has ' numbness' to the distal finger pad. The bleeding was controlled prior to arrival. His last tetanus vaccine was 2-3 years ago. 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14) Immunizations Current: Yes Migraines: Yes Seizures: Yes (WITH BRAIN TUMOR: RESOLVED) Tetanus Vaccination: < 5 Years Past Surgical History Neurologic Surgery: Yes (BRAIN TUMOR cerebellum: AGE 5) Social History Alcohol Use: Yes (RARELY) Tobacco Use: Yes (1 PPD) Substance Use: No Allergies-Medications (Allergen,Severity, Reaction): Coded Allergies: codeine (Verified Allergy, Severe, Hallucinations, 08/14/17) Uncoded Allergies: RED GATORADE (Allergy, Severe, Nausea/Vomiting, 08/29/13) HOT DOGS (Adverse Reaction, Intermediate, NAUSEA AND VOMITING, 02/20/06) Reported Meds & Prescriptions Reported Meds & Active Scripts Active Keflex (Cephalexin) 500 Mg Cap 500 Mg PO Q12H 5 Days Reported Ibuprofen 800 Mg Tab 800 Mg PO Q8H PRN Lorazepam 0.5 Mg Tab 0.5 Mg PO HS PRN Review of Systems Except as stated in HPI: all other systems reviewed are Neg Physical Exam Narrative GENERAL: Well-nourished, well-developed patient, in NAD SKIN: Focused skin assessment warm/dry. No rashes or lesions. HEAD: Normocephalic. Atraumatic. EYES: No scleral icterus. No injection or drainage. THROAT: Airway is patent. NECK: Supple, trachea midline. No JVD No meningismus. CARDIOVASCULAR: Regular rate and rhythm without murmurs, gallops, or rubs. RESPIRATORY: Breath sounds equal bilaterally. No accessory muscle use. No wheezes, rales, or rhonchi MUSCULOSKELETAL: No cyanosis, or edema. Right middle finger, distal finger pad 4mm round avulsed skin. bleeding controlled. no erythema or edema. calloused finger tips BACK: Nontender without obvious deformity. No CVA tenderness. Data Data Last Documented VS Vital Signs Date Time Temp Pulse Resp B/P (MAP) Pulse Ox O2 Delivery O2 Flow Rate FiO2 08/14/17 15:50 97.8 78 18 160/76 (104) 97 Orders Orders Ed Discharge Order (08/14/17 16:05) MDM Medical Decision Making Medical Screen Exam Complete: Yes Emergency Medical Condition: Yes Differential Diagnosis Right middle finger avulsion, laceration, abrasion, burn Narrative Course 27-year-old male presents emergency department for evaluation of 3 to the left middle finger that occurred just prior to arrival. He says he is unsure of there is a piece of metal in the wound and decided to come to the ED for evaluation as a portion of his finger skin is missing. He says the site is painful to the touch, burning sensation, no radiation of pain. Says he has ' numbness' to the distal finger pad. The bleeding was controlled prior to arrival. His last tetanus vaccine was 2-3 years ago. Vital signs are stable. Physical exam findings consistent with an avulsion of the right middle finger, distal finger pad. Bleeding controlled. No erythema or edema. Neurovascular intact. The area was cleansed with chlorhexidine and debrided. There was a small piece of metal flake on top of the wound that did not extend deep into the finger. Patient will be discharged and advised to follow up with his PCP. Keflex for prophylaxis if his finger becomes more painful, red, or swollen. I do not see any indication of this right now and therefore he should not take this medication. Diagnosis Primary Impression: Finger avulsion Qualified Codes: S61.209A - Unspecified open wound of unspecified finger without damage to nail, initial encounter Referrals: Primary Care Physician Patient Instructions: General Instructions Departure Forms: Tests/Procedures Additional Instructions: Keep area clean and dry. As discussed, start the antibiotics if the wound does not look any better tomorrow or worse. Keep covered while at work. Return to the ED for worsening or persistent symptoms. Scripts Cephalexin (Keflex) 500 Mg Cap 500 MG PO Q12H for Infection for 5 Days, #10 CAP 0 Refills Prov: Abhijit Miles MD 08/14/17 Disposition: 01 DISCHARGE HOME Condition: Stable Ayla Theodore Aug 14, 2017 16:04
== END 2017-08-14 16:13 | disposition home or self-care (01) ==
LOC: PHEFT 15:46
DX: S61.202A Unspecified open wound of right middle finger without damage to nail, initial encounter (principal); X58.XXXA Exposure to other specified factors, initial encounter; F41.9 Anxiety disorder, unspecified; I10 Essential (primary) hypertension; K21.9 Gastro-esophageal reflux disease without esophagitis; F17.200 Nicotine dependence, unspecified, uncomplicated
CPT/HCPCS: 99283